=== PATIENT | male | born 1985 | race Caucasian/White ===

== ENCOUNTER 2016-09-01 12:58 | Emergency (ER) | payer SELFPAY ==
[~2016-09-01] VITALS: Ht 175.3 cm; Wt 108.3 kg
[~2016-09-01 12:58] MED LIST: AUGMENTIN875 MG PO; CLARITIN10 MG PO; FLEXERIL10 MG PO; FLONASE16 G1 BOTH NARES; INDOCIN25 MG PO; NAPROSYN500 MG PO; NAPROXEN500 MG PO; NEXIUM20 MG PO; NOHOMEMEDS; NORCO 5/3251 TABLET PO; PREDNISONE50 MG PO; ZYRTEC10 M2 PO
[2016-09-01] MEDS ORDERED: FLEXERIL10 MG PO (15:49)
[2016-09-01 16:03] VITALS: BP 132/67
== END 2016-09-01 16:04 | disposition home or self-care (01) ==
LOC: EME 12:58
DX: S56.911A Strain of unspecified muscles, fascia and tendons at forearm level, right arm, initial encounter (principal); Z88.6 Allergy status to analgesic agent; X50.9XXA Other and unspecified overexertion or strenuous movements or postures, initial encounter
CPT/HCPCS: 99281; 99284

== ENCOUNTER 2016-09-16 16:02 | Emergency (ER) | payer SELFPAY ==
[~2016-09-16] VITALS: Ht 175.3 cm; Wt 106.1 kg
[2016-09-16 17:58] LABS: ADD MIUA? NO; BILIRUBIN NEGATIVE; BLOOD NEGATIVE; COLOR YELLOW ((YELLOW)); GLUCOSE (STRIP) NEGATIVE; KETONES NEGATIVE; LEUKOCYTES NEGATIVE; NITRITE NEGATIVE; PROTEIN (STRIP) NEGATIVE; UCUL ADDED? NO; UROBILINOGEN 0.2 MG/DL (0.2-1.0)
[2016-09-16 18:03] LABS: HEMATOCRIT 48.5 % (38.0-50.0); MCH 29.9 PG (29.0-34.0); MCHC 35.3 G/DL (30.0-36.0); MCV 84.9 FL (86-99); MEAN PLAT.VOLUME 10.2 uM^3 (9.0-12.4); PLATELET COUNT 210 K/uL (156-360); RBC DIS.WIDTH-CV 12.1 % (11.8-14.6); RED BLOOD COUNT 5.71 M/uL (4.00-5.50); WHITE BLOOD COUNT 6.3 K/uL (4.1-10.2)
[2016-09-16 18:14] LABS: CHLORIDE 104 mEq/L (99-109); POTASSIUM 4.2 mEq/L (3.7-5.4); SODIUM 139 mEq/L (136-147)
[2016-09-16 18:16] LABS: GLUCOSE 109 mg/dL (70-99)
[2016-09-16 18:18] LABS: ANION GAP 12 MEQ/L (2-14)
[2016-09-16 18:20] LABS: GFR ESTIMATE (CALCULATED) > 59 mL/min/
[2016-09-16 18:21] LABS: UREA NITROGEN (BUN) 14 mg/dL (9-23)
[2016-09-16] MEDS ORDERED: TRAMADOL HCL50 MG PO (19:24)
[2016-09-16] MEDS ORDERED: FLEXERIL5 MG PO (19:24)
[2016-09-16 19:33] VITALS: BP 151/68
== END 2016-09-16 19:35 | disposition home or self-care (01) ==
LOC: RME 16:02 → EME 16:02 → RME 19:35
PROVIDERS: Physician Assistant
DX: R10.9 Unspecified abdominal pain (principal); Z87.891 Personal history of nicotine dependence
CPT/HCPCS: 74176; 80048; 81003; 85027; 99281; 99284